=== PATIENT | male | born 1950 ===

== ENCOUNTER → 2018-07-25 19:41 | Outpatient (REF) | payer SELFPAY ==
[2018-07-25 20:43] LABS: Hemoglobin A1C% w Est Avg Glu 7.1 % (4.0-6.0)
== END ==
LOC: LAB 19:41
PROVIDERS: Visit Provider Nurse Practitioner Acute Care
DX: E10.9 Type 1 diabetes mellitus without complications (principal)
CPT/HCPCS: 83036